=== PATIENT | male | born 1965 | race Caucasian/White ===

== ENCOUNTER 2018-04-01 17:33 | Emergency (ER) | payer OTHER ==
[2018-04-01] MEDS ORDERED: Oxymetazoline HCl 0.05% ( 15 ML ) ONE (17:58)
== END 2018-04-01 18:32 | disposition home or self-care (01) ==
LOC: MADERS 17:33
DX: R04.0 Epistaxis (principal); F17.210 Nicotine dependence, cigarettes, uncomplicated
CPT/HCPCS: 99283

== ENCOUNTER 2018-04-04 12:04 | Emergency (ER) | payer OTHER ==
[2018-04-04] MEDS ORDERED: Lidocaine 1% 20 ML MDV ONE (12:30)
== END 2018-04-04 13:08 | disposition home or self-care (01) ==
LOC: MADERS 12:04
DX: R04.0 Epistaxis (principal); I10 Essential (primary) hypertension; F17.210 Nicotine dependence, cigarettes, uncomplicated
CPT/HCPCS: 99283; J2001

== ENCOUNTER 2018-04-05 07:26 | Emergency (ER) | payer OTHER | END 2018-04-05 09:30 | disposition home or self-care (01) | LOC: MADERS 07:26 | DX: R04.0 Epistaxis (principal) | CPT/HCPCS: 30903 ==

== ENCOUNTER 2018-05-11 09:54 | Emergency (ER) | payer OTHER ==
[2018-05-11] MEDS ORDERED: methylPREDNISolone Sod Succ/PF 125 MG/2 ML VIAL ONE (10:12)
[2018-05-11] MEDS ORDERED: Clindamycin 150 MG CAP ONE (10:12)
== END 2018-05-11 10:25 | disposition home or self-care (01) ==
LOC: MADERS 09:54
DX: S80.262A Insect bite (nonvenomous), left knee, initial encounter (principal); L03.116 Cellulitis of left lower limb; Z79.899 Other long term (current) drug therapy; W57.XXXA Bitten or stung by nonvenomous insect and other nonvenomous arthropods, initial encounter
CPT/HCPCS: 96372; J2930

== ENCOUNTER 2019-01-01 09:21 | Emergency (ER) | payer OTHER | END 2019-01-01 11:45 | disposition home or self-care (01) | LOC: MADERS 09:21 | DX: K04.7 Periapical abscess without sinus (principal); L03.211 Cellulitis of face; F17.210 Nicotine dependence, cigarettes, uncomplicated; Z79.899 Other long term (current) drug therapy | CPT/HCPCS: 99283 ==

== ENCOUNTER 2020-02-13 02:20 | Emergency (ER) | payer OTHER ==
[2020-02-13] MEDS ORDERED: Fluorescein Opthalmic Strip ONE (02:38)
[2020-02-13] MEDS ORDERED: Tetracaine 0.5% PF 4 ML BOT ONE (02:39)
[2020-02-13] MEDS ORDERED: Morphine 4 MG/ML VIAL ONE (03:01)
== END 2020-02-13 03:35 | disposition home or self-care (01) ==
LOC: MADERS 02:20
DX: H16.133 Photokeratitis, bilateral (principal); I10 Essential (primary) hypertension; F17.210 Nicotine dependence, cigarettes, uncomplicated; W89.0XXA Exposure to welding light (arc), initial encounter
CPT/HCPCS: 96372; 99283; J2270

== ENCOUNTER 2020-10-21 17:10 | Emergency (ER) | payer OTHER ==
[2020-10-21] MEDS ORDERED: Diazepam 5 MG TAB ONE (17:48)
[2020-10-21] MEDS ORDERED: Ketorolac Tromethamine 30 MG/ML VIAL ONE (17:48)
== END 2020-10-21 18:12 | disposition home or self-care (01) ==
LOC: MADERS 17:10
DX: S13.4XXA Sprain of ligaments of cervical spine, initial encounter (principal); F17.210 Nicotine dependence, cigarettes, uncomplicated; I10 Essential (primary) hypertension; Z79.899 Other long term (current) drug therapy; X50.1XXA Overexertion from prolonged static or awkward postures, initial encounter
CPT/HCPCS: 96372; 99283; J1885

== ENCOUNTER 2020-10-28 23:34 | Emergency (ER) | payer OTHER ==
[2020-10-28] MEDS ORDERED: Nitroglycerin 2% Ointment 1 INCH/1 GM Packet ONE (23:54)
[2020-10-28] MEDS ORDERED: Nitroglycerin 0.4 MG TAB 1 EACH ONE (23:54)
[2020-10-28] MEDS ORDERED: Acetaminophen 500 MG TAB ONE (23:54)
[2020-10-28 23:55] LABS: #Basophils 0.2 thou/uL (0.0-0.2); #Eosinphils 0.2 thou/uL (0.0-0.7); #Lymphocytes 2.7 thou/uL (1.20-3.40); #Monocytes 1.1 thou/uL (0.11-0.59); #Neutrophils 10.8 thou/uL (1.40-6.50); %Basophils 1.5 % (0.0-1.0); %Eosinophils 1.2 % (0.0-10.0); %Lymphocytes 18.1 % (21.0-51.0); %Monocytes 7.6 % (0.0-10.0); %Neutrophils 71.6 % (42.0-75.0); Hemoglobin 14.8 g/dL (14.0-18.0); Mean Corpuscular HGB CONC 34.5 g/dL (32.0-36.0); Mean Corpuscular Hemoglobin 30.8 pg (27.0-31.0); Mean Corpuscular Volume 89.4 fL (78.0-98.0); Mean Platelet Volume 6.8 fL (7.4-10.4); Platelet Count 385 thou/uL (130-400); RBC Distribution Width 11.5 % (11.5-14.5)
[2020-10-29 00:11] LABS: ALT (SGPT) 20 U/L (8-55); AST (SGOT) 14 U/L (5-34); Albumin 4.5 g/dL (3.5-5.0); Alkaline Phosphatase 89 U/L (40-110); Anion Gap 14 mmol/L (10-20); BUN (Urea Nitrogen) 16 mg/dL (8.4-25.7); Bilirubin, Total 0.7 mg/dL (0.2-1.2); CK (CPK) 123 U/L (30-200); Calc. Creatinine Clearance 0 mL/min (70-130); Calcium 9.4 mg/dL (7.8-10.44); Carbon Dioxide 25 mmol/L (22-29); Chloride 103 mmol/L (98-107); Globulin 2.6 g/dL (2.4-3.5); Glucose 129 mg/dL (70-105); Lipase 36 U/L (8-78); Potassium 3.7 mmol/L (3.5-5.1); Protein, Total 7.1 g/dL (6.0-8.3); Sodium 138 mmol/L (136-145)
[2020-10-29] MEDS ORDERED: Ketorolac Tromethamine 30 MG/ML VIAL ONE (00:28)
[2020-10-29] MEDS ORDERED: Aspirin Chewable 81 MG TAB ONE (00:28)
[2020-10-29] MEDS ORDERED: Metoclopramide HCl 10 MG/2 ML VIAL ONE (00:28)
[2020-10-29] MEDS ORDERED: Sodium Chloride 0.9% 1,000 ML ONE (00:28)
[2020-10-29] MEDS ORDERED: diphenhydrAMINE 50 MG/ML VIAL ONE (00:29)
== END 2020-10-29 00:13 | disposition home or self-care (01) ==
LOC: MADERS 23:34
DX: R07.9 Chest pain, unspecified (principal); R51.9 Headache, unspecified; I10 Essential (primary) hypertension; F17.210 Nicotine dependence, cigarettes, uncomplicated
CPT/HCPCS: 70450; 71045; 80053; 82550; 83690; 84484; 85025; 93005; 96365; 96375; J1200; J1885; J2765; J7050

== ENCOUNTER 2021-06-02 06:16 | Emergency (ER) | payer OTHER ==
[2021-06-02 07:42] LABS: #Basophils 0.1 thou/uL (0.0-0.2); #Eosinphils 0.3 thou/uL (0.0-0.7); #Lymphocytes 1.8 thou/uL (1.20-3.40); #Monocytes 1.3 thou/uL (0.11-0.59); %Basophils 0.9 % (0.0-1.0); %Eosinophils 2.4 % (0.0-10.0); %Lymphocytes 14.3 % (21.0-51.0); %Neutrophils 72.4 % (42.0-75.0); Hemoglobin 19.3 g/dL (14.0-18.0); Mean Corpuscular HGB CONC 31.5 g/dL (32.0-36.0); Mean Corpuscular Hemoglobin 30.6 pg (27.0-31.0); Mean Platelet Volume 7.4 fL (7.4-10.4); Platelet Count 300 thou/uL (130-400); RBC Distribution Width 13.3 % (11.5-14.5); Red Blood Cell (RBC) Count 6.25 mill/uL (4.70-6.10); White Blood Cell (WBC) Count 12.5 thou/uL (4.8-10.8)
[2021-06-02 07:46] LABS: ALT (SGPT) 32 U/L (8-55); AST (SGOT) 23 U/L (5-34); Albumin 4.1 g/dL (3.5-5.0); Alkaline Phosphatase 127 U/L (40-110); Anion Gap 13 mmol/L (10-20); BUN (Urea Nitrogen) 10 mg/dL (8.4-25.7); Bilirubin, Total 0.6 mg/dL (0.2-1.2); Calc. Creatinine Clearance 0 mL/min (70-130); Carbon Dioxide 27 mmol/L (22-29); Chloride 105 mmol/L (98-107); Globulin 2.9 g/dL (2.4-3.5); Glucose 104 mg/dL (70-105); Lipase 36 U/L (8-78); Potassium 4.4 mmol/L (3.5-5.1); Sodium 141 mmol/L (136-145)
== END 2021-06-02 08:15 | disposition home or self-care (01) ==
LOC: MADERS 06:16
DX: D75.1 Secondary polycythemia (principal); K59.00 Constipation, unspecified; I10 Essential (primary) hypertension; F17.210 Nicotine dependence, cigarettes, uncomplicated
CPT/HCPCS: 74176; 80053; 83690; 85025

== ENCOUNTER 2022-03-31 22:51 | Emergency (ER) | payer OTHER | END 2022-04-01 02:00 | disposition home or self-care (01) | LOC: MADERS 22:51 | DX: S46.812A Strain of other muscles, fascia and tendons at shoulder and upper arm level, left arm, initial encounter (principal); I10 Essential (primary) hypertension; F17.210 Nicotine dependence, cigarettes, uncomplicated; X50.0XXA Overexertion from strenuous movement or load, initial encounter; Y93.F2 Activity, caregiving, lifting; Y92.69 Other specified industrial and construction area as the place of occurrence of the external cause; Z79.899 Other long term (current) drug therapy ==

== ENCOUNTER 2022-10-01 11:48 | Emergency (ER) | payer OTHER ==
[2022-10-01 12:47] LABS: #Basophils 0.1 thou/uL (0.0-0.2); #Eosinphils 0.1 thou/uL (0.0-0.7); #Lymphocytes 2.1 thou/uL (1.20-3.40); #Monocytes 0.8 thou/uL (0.11-0.59); #Neutrophils 7.1 thou/uL (1.40-6.50); %Basophils 1.4 % (0.0-1.0); %Eosinophils 1.4 % (0.0-10.0); %Lymphocytes 20.9 % (21.0-51.0); %Monocytes 7.6 % (0.0-10.0); %Neutrophils 68.7 % (42.0-75.0); Hemoglobin 20.8 g/dL (14.0-18.0); Mean Corpuscular HGB CONC 33.7 g/dL (32.0-36.0); Mean Corpuscular Hemoglobin 30.2 pg (27.0-31.0); Mean Corpuscular Volume 89.5 fl (78.0-98.0); Mean Platelet Volume 7.2 fL (7.4-10.4); Platelet Count 325 10x3/uL (130-400); RBC Distribution Width 11.4 % (11.5-14.5); Red Blood Cell (RBC) Count 6.91 mill/uL (4.70-6.10); White Blood Cell (WBC) Count 10.3 10x3/uL (4.8-10.8)
[2022-10-01 12:57] LABS: ALT (SGPT) 27 U/L (8-55); AST (SGOT) 16 U/L (5-34); Albumin 4.3 g/dL (3.5-5.0); Alkaline Phosphatase 96 U/L (40-110); Anion Gap 13 mmol/L (10-20); BUN (Urea Nitrogen) 10 mg/dL (8.4-25.7); Bilirubin, Total 0.8 mg/dL (0.2-1.2); Calc. Creatinine Clearance 0 mL/min (70-130); Calcium 9.1 mg/dL (7.8-10.44); Carbon Dioxide 24 mmol/L (22-29); Chloride 107 mmol/L (98-107); Estimated GFR 100; Globulin 2.7 g/dL (2.4-3.5); Glucose 84 mg/dL (70-105); Magnesium 2.1 mg/dL (1.6-2.6); Potassium 4.1 mmol/L (3.5-5.1); Sodium 140 mmol/L (136-145)
[2022-10-01 13:05] LABS: Bilirubin Negative (Negative); Blood, Urine Negative (Negative); Clarity Clear (Clear); Glucose, Urine (Dipstick) Negative (Negative); Ketone, Urine Negative (Negative); Leukocyte Negative (Negative); Nitrite Negative (Negative); Protein, Urine (Dipstick) 30 mg/dL (Neg-Trace); Specific Gravity, Urine 1.025 (1.005-1.030); Urobilinogen 0.2 mg/dL (Less than 2); pH, Urine 5.5 (5.0-9.0)
[2022-10-01 13:13] LABS: Bacteria/HPF Rare-Few HPF (None Seen); Mucous/LPF 1+ LPF (<2+); RBC/HPF None Seen HPF (0-3); Sperm/HPF Rare HPF (None Seen); Squamous Epithelial 0-3 HPF (0-3); WBC/HPF 0-3 HPF (0-3)
[2022-10-01] MEDS ORDERED: Acetaminophen 500 MG TAB ONE (13:21)
[2022-10-01] MEDS ORDERED: Sodium Chloride 0.9% 1,000 ML ONE (13:21)
== END 2022-10-01 14:12 | disposition home or self-care (01) ==
LOC: MADERS 11:48
DX: J01.90 Acute sinusitis, unspecified (principal); R42 Dizziness and giddiness; F17.210 Nicotine dependence, cigarettes, uncomplicated; Z20.822 Contact with and (suspected) exposure to COVID-19
CPT/HCPCS: 70450; 71045; 80053; 81003; 81015; 83735; 84484; 85025; 87804; 93005; 96360; J7050; U0003; U0005

== ENCOUNTER 2022-12-07 10:26 | Outpatient (CLI) | payer OTHER | END 2022-12-07 10:27 | disposition home or self-care (01) | LOC: MADLAB 10:26 | PROVIDERS: ATTEND Family Medicine | DX: M25.561 Pain in right knee (principal); M17.11 Unilateral primary osteoarthritis, right knee ==

== ENCOUNTER 2024-03-30 07:56 | Emergency (ER) | payer OTHER | END 2024-03-30 08:45 | disposition home or self-care (01) | LOC: MADERS 07:56 | DX: K12.2 Cellulitis and abscess of mouth (principal); I10 Essential (primary) hypertension | CPT/HCPCS: 99283 ==